=== PATIENT | male | born 1950 | race Caucasian/White ===

== ENCOUNTER 2019-02-19 12:48 | Outpatient (RCR) | payer MEDICARE ==
--- NOTE | 2019-02-05 13:46 | CARECAPL ---
Assessment Account #s: Initial Assessment General Diagnoses: CABG Date of event: Dec 19, 2018 Physician: Selvin Toussaint Allergies: Coded Allergies: MS - No Known Drug Allergy (Verified Allergy, Unknown, 07/23/12) Date Entered Program: Feb 05, 2019 Risk strat for cardiac event: High Exercise Assessment: Initial Assessment Stages of change: Pre-contemplation Exercise Prescription Plan educate on cardiovascular disease and increase endurance, strength and flexibility through monitored exercise program. Modalities initiated: Nustep (will add level 1 for 6 minutes), Arm Aerometer (will add resistance of 1 for 5 minutes), Dumbells (will add 1lb weights 1 set of 8 reps), Recumbent Bike (will add resistance of 1 for 5 minutes) Frequency: 2 Duration (Minutes) 30 - 60 minutes total exercise a day. 15 - 20 work intervals in minutes. PRN rest intervals in minutes. Functional Capacity Goal Sustained Metabolic Equivalent of a task (MET) goal of 2.5-3.5 for 15-20 minutes. Intensity: 3-Moderate Progression (METS) Increase by: 0.5 METS every: 3-5 sessions Angina with ex: No Target Heart Rate rest + 35-40 per beta fatou therapy. Weight (pounds): 1 Reps: 6-8 Medications Scheduled Amiloride HCl (Amiloride HCl), 5 MG PO DAILY, (Reported) Ascorbic Acid (Vitamin C), 500 MG PO DAILY, (Reported) Aspirin (Aspirin), 81 MG PO DAILY, (Reported) Atorvastatin Calcium (Atorvastatin Calcium), 80 MG PO QHS, (Reported) Bumetanide (Bumetanide), 1 MG PO BID, (Reported) Carvedilol (Carvedilol), 25 MG PO BID, (Reported) Losartan Potassium (Losartan Potassium), 50 MG PO DAILY, (Reported) Metformin HCl (Metformin HCl), 1,000 MG PO BID, (Reported) Scheduled PRN Albuterol Sulfate (Ventolin Hfa), 2 PUFF INH Q4-6HP PRN for wheezing, (Reported) Discontinued Medications Docusate Sodium (Colace), 100 MG PO BID, (Reported) Discontinued Reason: Pt states not taking Ferrous Sulfate (Ferrous Sulfate), 325 MG PO BID, (Reported) Discontinued Reason: Pt states not taking Target Goals Individual exercise Rx (1) BP 140/90 or 130/80 if DM or CKD (1) Aerobic active 30+min 5 days per week (1) Nutrition Date: Feb 05, 2019 Assessment: Initial Assessment Stages of change: Pre-contemplation Lipid- med/supplement atorvastatin Diabetes Diabetes: Yes HbA1c (%): 6.6 Diabetes medication metformin Monitor Blood Sugar at home: Yes (only as needed Dr. Martin checks his A1c every 3 months) Frequency as needed Weight Management Weight (lbs): 283.4 Height (inches): 64 Waist Circumference (Inches): 48 BMI: 48.57 Weight goal: 240 Special Diet: low salt Vitamin/Supplements: Multivitamin Alcohol: special Alcohol Type: beer, wine Alcohol Amount: 2 Diet Access Tool: Rate your plate Score: 58 Intervention Rn Chronic Consult: No Nurse/patient discussion: No Dietary Goals working on eating smaller portions so he can lose weight. Diet Class: No Referral to Diabetes education: No Referral to lipid clinic: No Referral to weight mangement p: No Education Goals Met: No Target goal LDL-C<100 if triglycerides are >200 Non-HDL-C should be <130 (1) LDL-C<70 for high risk patients (4) HbA1c<7% (1) BMI<25 Waist cir<40in M/<35in F (1) Education Date: Feb 05, 2019 Assessment: Initial Assessment Knowledge Test Score: 10 Stages of change: Pre-contemplation Family Support: Yes Tobacco use: No Quit: never smoked Target Goals Complete cessation of tobacco use (1). Psychosocial Date: Feb 05, 2019 Psych Test (Initial/Discharge) Tool Used: CESD Score: 1 Stages of change: Pre-contemplation Intervention Physician Consult: No Physician Referral: No Psychotropic medication none Education Goals Met: No Target Goal Assess presence or absence of depression using a valid screening tool (1). Maximize coping skills (2). Positive support system (2). Patient/Program Goal Preventative Medication: Yes Aspirin, Yes Clopidogrel, Yes Beta blockade, Yes Statin/OTR lipid Lowering Fall Risk Assess: Yes (postive for fall risk) Assisstive Device: cane Provider Assessment Provider Assessment: Proceed with rehab Mounika Nieves RN Feb 05, 2019 13:46
[~2019-02-19 12:48] MED LIST: AMIL5TAB4 PO; ASPI81CH33 PO; ATOR80TA59 PO; BUME1TAB3 PO; CARV25TA PO; COLA100C5 PO; FERR325T3 PO; LOSA50TA88 PO; METF10004 PO; VENTAER INH; VITA500C24 PO
== END 2019-02-20 ==
LOC: M CR 12:48
PROVIDERS: ATTEND Internal Medicine Cardiovascular Disease
DX: Z95.1 Presence of aortocoronary bypass graft (principal)

== ENCOUNTER 2019-03-14 10:44 | Outpatient (RCR) | payer MEDICARE ==
--- NOTE | 2019-02-27 08:47 | CARECAPL ---
Assessment Account #s: Re-Assessment I General Diagnoses: CABG Date of event: Dec 19, 2018 Physician: Selvin Toussaint Allergies: Coded Allergies: MS - No Known Drug Allergy (Verified Allergy, Unknown, 07/23/12) Date Entered Program: Feb 05, 2019 Risk strat for cardiac event: High Exercise Date: Feb 27, 2019 Assessment: Re-Assessment I Stages of change: Preperation Exercise Prescription Modalities initiated: Nustep (L2 12 minutes mts 3.8 rpe 2), Arm Aerometer (2.5 10 minutes mts 2.7 rpe 2.5), Dumbells, Recumbent Bike (R3 10 minutes mts 3.7 rpe 3) Frequency: 2-3 Duration (Minutes) 30 - 60 minutes total exercise a day. 15 - 20 work intervals in minutes. PRN rest intervals in minutes. Functional Capacity Goal Sustained Metabolic Equivalent of a task (MET) goal of 3.5-4.5 for 15-20 minutes. Intensity: 2-Slight Progression (METS) Increase by: .5 METS every: 2-3 sessions Resistance Training: Yes Weight (pounds): 2 Reps: 6-8 Hypertension: Yes Hypertension controlled with: Medication Resting 102/66 Peak Exercise BP 140/84 Meds see below Medications Scheduled Amiloride HCl (Amiloride HCl), 5 MG PO DAILY, (Reported) Ascorbic Acid (Vitamin C), 500 MG PO DAILY, (Reported) Aspirin (Aspirin), 81 MG PO DAILY, (Reported) Atorvastatin Calcium (Atorvastatin Calcium), 80 MG PO QHS, (Reported) Bumetanide (Bumetanide), 1 MG PO BID, (Reported) Carvedilol (Carvedilol), 25 MG PO BID, (Reported) Losartan Potassium (Losartan Potassium), 50 MG PO DAILY, (Reported) Metformin HCl (Metformin HCl), 1,000 MG PO BID, (Reported) Scheduled PRN Albuterol Sulfate (Ventolin Hfa), 2 PUFF INH Q4-6HP PRN for wheezing, (Reported) Current BP 104/70 after exercise Med Change: No Intervention Home exercise: Type (walking, recumbant bike, silver sneakers (progam at [facility])), Frequency Resistance Training: Yes Education: Self pulse (pt demonstrates taking self pulse), Ex safety (pt states understanding of safe exercise, reporting chest pain, warm and cool down, s/s to report to nurses and dr if not here.), S/S to report (clear understanding of s/s to report ), RPE Scale (demonstrates effort scale indepently), Equipment orientation (pt uses exercise equipment with minimal assistance), warm up/cool down (demonstrates independently warmup and cool down), Physical Active (pt verbalizes knowledge of importance of continued exercise following cardiac rehab program) Education Goals Met: No (progressing toward goals. good attitude toward exercise) Target Goals Individual exercise Rx (1) BP 140/90 or 130/80 if DM or CKD (1) Aerobic active 30+min 5 days per week (1) Nutrition Date: Feb 27, 2019 Assessment: Re-Assessment I Stages of change: Pre-contemplation (not activing talking about weight problem or about engaging in reducing ) Diabetes Diabetes: Yes Fasting Blood Sugar: 111 Monitor Blood Sugar at home: No (Accounting Teacher monitor [id number] with Hgb A1C) Medication Change: No Random Blood Sugar: 111 Current Weight (pounds): 287.4 Weight Goal 220 Intervention Commutator Repairer Consult: Yes Nurse/patient discussion: No (will discuss in education session with umbrella tipper and with nurse/pt 1 on 1.) Dietary Goals smaller portions and better choices Diet Class: No (will see this program) Education S&S hypo/hyper glycemia (acknowledges s/s of low and high blood sugar+), Relate Diabetes in CAD (will education about the increase risk of high glucose in relationship to cardiac disease during this program), Eating Healthy (will cover with umbrella tipper and with nurse 1 on 1) Education Goals Met: No (progressing toward goals. Will spend much time on self management of diet modification) Target goal LDL-C<100 if triglycerides are >200 Non-HDL-C should be <130 (1) LDL-C<70 for high risk patients (4) HbA1c<7% (1) BMI<25 Waist cir<40in M/<35in F (1) Education Date: Feb 27, 2019 Assessment: Re-Assessment I Quit: never smoked Intervention Attended education classes: Yes Education: Risk factors (Risk factors of poor diet, obesity, abnormal lipid panel, diabetes and lack of exercise reviewed with pt) Education Goals Met: No (education will continue throughout program) Target Goals Complete cessation of tobacco use (1). Psychosocial Date: Feb 27, 2019 Assessment: Re-Assessment I Stages of change: Preperation Intervention Physician Consult: No Physician Referral: No Stress Management Class: No Uses Stress Management Skills: No (will be proviewed in program) Education Goals Met: No (will be provided during this program. Have a good sense of humor and good attitude toward program) Target Goal Assess presence or absence of depression using a valid screening tool (1). Maximize coping skills (2). Positive support system (2). Provider Assessment Session Number: 5 Provider Assessment: No changes (has had good attendance thus far, receptive to education when provided.) Jo-Ann Winters RN Feb 27, 2019 08:47
--- NOTE | 2019-03-17 17:58 | CARECAPL ---
Assessment Account #s: Re-Assessment II General Diagnoses: CABG Date of event: Dec 19, 2018 Physician: Selvin Toussaint Allergies: Coded Allergies: MS - No Known Drug Allergy (Verified Allergy, Unknown, 07/23/12) Date Entered Program: Feb 05, 2019 Risk strat for cardiac event: High Exercise Date: Mar 17, 2019 Assessment: Re-Assessment II Stages of change: Contemplate Exercise Prescription Plan TO EDUCATE AND BUILD ENDURANCE THROUGH MONITORED EXERCISE Modalities initiated: Nustep (METS=3.80/RPE=2), Arm Aerometer (METS=3.20/RPE=3), Dumbells (6#/RPE=2), Recumbent Bike (METS=4.7/RPE=3) Frequency: 3 Duration (Minutes) 30 - 60 minutes total exercise a day. 15 - 20 work intervals in minutes. PRN rest intervals in minutes. Functional Capacity Goal Sustained Metabolic Equivalent of a task (MET) goal of 3.5-4.5 for 15-20 minutes. Intensity: 3-Moderate Progression (METS) Increase by: 0.5 METS every: 5 sessions TOLERATED Angina with ex: No Target Heart Rate REST +35-40 Resistance Training: Yes Weight (pounds): 6 Reps: 12-15 Hypertension: Yes Hypertension controlled with: Medication (CARVEDILOL,AMILORIDE,LOSARTIN) Resting 106/60 Peak Exercise BP 162/90 Medications Scheduled Amiloride HCl (Amiloride HCl), 5 MG PO DAILY, (Reported) Ascorbic Acid (Vitamin C), 500 MG PO DAILY, (Reported) Aspirin (Aspirin), 81 MG PO DAILY, (Reported) Atorvastatin Calcium (Atorvastatin Calcium), 80 MG PO QHS, (Reported) Bumetanide (Bumetanide), 1 MG PO BID, (Reported) Carvedilol (Carvedilol), 25 MG PO BID, (Reported) Losartan Potassium (Losartan Potassium), 50 MG PO DAILY, (Reported) Metformin HCl (Metformin HCl), 1,000 MG PO BID, (Reported) Scheduled PRN Albuterol Sulfate (Ventolin Hfa), 2 PUFF INH Q4-6HP PRN for wheezing, (Reported) Current BP 104/70 Med Change: No Intervention Home exercise: Type (WALKING, JOIN LOCAL GYM, HAND WEIGHTS), Frequency (3-5 DAYS PER WEEK), Duration (30-60 MIN) Resistance Training: Yes Education: Self pulse (SEE EDUCATION ON PRIOR ITP, CONTINUE TO REINFORCE WHILE IN PROGRAM) Education Goals Met: Yes (PROGRESSING TOWARD GOALS) Target Goals Individual exercise Rx (1) BP 140/90 or 130/80 if DM or CKD (1) Aerobic active 30+min 5 days per week (1) Nutrition Date: Mar 17, 2019 Assessment: Re-Assessment II Stages of change: Contemplate (DISCUSSING NEED TO LOSE WEIGHT, DOESN'T SEEM VERY MOTIVATED AT THIS TIME) Lipid- med/supplement ATORVASTATIN Med Change: No Diabetes Diabetes: Yes Fasting Blood Sugar: 109 Diabetes medication METFORMIN, LOG CHAIN FEEDER FOLLOWS HGBA1C Q 3 MONTHS Monitor Blood Sugar at home: Yes Medication Change: No Weight Management Weight (lbs): 285 Special Diet: low salt, low-fat Current Weight (pounds): 285 Intervention Utility Porter Consult: No Nurse/patient discussion: Yes Diet Class: Yes (MET WITH EDITOR SOUND 02/27/2019) Referral to Diabetes education: No Referral to lipid clinic: No Referral to weight mangement p: No Education Eating Healthy (ENCOURAGE LOW SALT, LOW FAT HEART HEALTHY DIET, ENCOURAGE SMALLER PORTIONS) Education Goals Met: Yes (PROGRESSING TOWARD GOALS) Target goal LDL-C<100 if triglycerides are >200 Non-HDL-C should be <130 (1) LDL-C<70 for high risk patients (4) HbA1c<7% (1) BMI<25 Waist cir<40in M/<35in F (1) Education Date: Mar 17, 2019 Assessment: Re-Assessment II Learning Barriers: ready Stages of change: Contemplate Family Support: Yes Tobacco use: No Intervention Referral to smoking cessation: No Individual education and couns: No Tobacco Adjunct: No Education class schedule given: No Attended education classes: No Education: med compliance (DISCUSSED IMPORTANCE OF MEDICATION COMPLIANCE, PATIENT VERBALIZES UNDERSTANDING) Education Goals Met: Yes (PROGRESSING TOWARD GOALS) Target Goals Complete cessation of tobacco use (1). Psychosocial Date: Mar 17, 2019 Assessment: Re-Assessment II Stages of change: Contemplate Intervention Physician Consult: No Physician Referral: No Med Change: No Stress Management Class: No Uses Stress Management Skills: Yes Education Education: Coping Techniques (DISCUSSED COPING MEASURES SUCH TAKING TIME FOR SELF, EXERCISE, TALKING WITH FRIENDS AND FAMILY), S/S depression (REVIEWED S/S OF DEPRESSION SUCH WITHDRAWAL, LACK OF INTEREST,LACK OF APPETITE,SECLUSION), Relaxation Techniques (DISCUSSED WAYS TO RELAX SUCH READING, MUSIC, EXERCISE) Target Goal Assess presence or absence of depression using a valid screening tool (1). Maximize coping skills (2). Positive support system (2). Fall Risk Assess: Yes (NOT A FALL RISK) Provider Assessment Session Number: 10 Provider Assessment: Proceed with rehab (GOOD ATTENDENCE/RECEPTIVE TO EDUCATION) Rusty Orozco RN Mar 17, 2019 17:57
== END 2019-03-22 ==
LOC: M CR 10:44
PROVIDERS: ATTEND Internal Medicine Cardiovascular Disease
DX: Z51.89 Encounter for other specified aftercare (principal); Z95.1 Presence of aortocoronary bypass graft

== ENCOUNTER 2019-04-07 15:59 | Outpatient (RCR) | payer MEDICARE ==
--- NOTE | 2019-04-07 15:38 | CARECAPL ---
Assessment Account #s: Discharge General Diagnoses: CABG Date of event: Dec 19, 2018 Physician: Selvin Toussaint Allergies: Coded Allergies: MS - No Known Drug Allergy (Verified Allergy, Unknown, 07/23/12) Date Entered Program: Feb 05, 2019 Risk strat for cardiac event: High Exercise Date: Apr 07, 2019 Assessment: Followup/Discharge Stages of change: Preperation Exercise Prescription Modalities initiated: Treadmill, Nustep (L7 MTS 3.1 RPE 2.5), Arm Aerometer (6.0 MTS 3.2 RPE 3), Dumbells, Recumbent Bike (R5 MTS 4.9 3 RPE 10 MINUTES) Frequency: 2 Duration (Minutes) 30 - 60 minutes total exercise a day. 15 - 20 work intervals in minutes. PRN rest intervals in minutes. Functional Capacity Goal Sustained Metabolic Equivalent of a task (MET) goal of 3.5-4.5 for 15-20 minutes. Intensity: 3-Moderate Progression (METS) Increase by: METS every: sessions Angina with ex: No Resistance Training: Yes Weight (pounds): 8 Reps: 8-12 Hypertension: Yes Hypertension controlled with: Medication Resting 130/76 Peak Exercise BP 158/76 Meds SEE BELOW Medications Scheduled Amiloride HCl (Amiloride HCl), 5 MG PO DAILY, (Reported) Ascorbic Acid (Vitamin C), 500 MG PO DAILY, (Reported) Aspirin (Aspirin), 81 MG PO DAILY, (Reported) Atorvastatin Calcium (Atorvastatin Calcium), 80 MG PO QHS, (Reported) Bumetanide (Bumetanide), 1 MG PO BID, (Reported) Carvedilol (Carvedilol), 25 MG PO BID, (Reported) Losartan Potassium (Losartan Potassium), 50 MG PO DAILY, (Reported) Metformin HCl (Metformin HCl), 1,000 MG PO BID, (Reported) Scheduled PRN Albuterol Sulfate (Ventolin Hfa), 2 PUFF INH Q4-6HP PRN for wheezing, (Reported) Education Goals Met: Yes Target Goals Individual exercise Rx (1) BP 140/90 or 130/80 if DM or CKD (1) Aerobic active 30+min 5 days per week (1) Nutrition Date: Apr 07, 2019 Assessment: Followup/Discharge Stages of change: Preperation Med Change: No Diabetes Diabetes: No Medication Change: No Weight Management Weight (lbs): 286 Height (inches): 64 Waist Circumference (Inches): 53 BMI: 49.1 Diet Access Tool: Rate your plate Score: 58 Intervention Diet Class: Yes (11.7.19) Education Goals Met: Yes Target goal LDL-C<100 if triglycerides are >200 Non-HDL-C should be <130 (1) LDL-C<70 for high risk patients (4) HbA1c<7% (1) BMI<25 Waist cir<40in M/<35in F (1) Education Date: Apr 07, 2019 Assessment: Followup/Discharge Knowledge Test Score: 9 Stages of change: Preperation Family Support: Yes Education Goals Met: No (EDUCATION DONE BUT MUCH REINFORCEMENT NEEDED) Target Goals Complete cessation of tobacco use (1). Psychosocial Date: Apr 07, 2019 Assessment: Followup/Discharge Psych Test (Initial/Discharge) Tool Used: Other (PHQ-9) Score: 3 Stages of change: Contemplate Target Goal Assess presence or absence of depression using a valid screening tool (1). Maximize coping skills (2). Positive support system (2). Fall Risk Assess: No Provider Assessment Session Number: 14 Provider Assessment: No changes (FAIR ATTENDANCE. ) Jo-Ann Winters RN Apr 07, 2019 15:38
== END 2019-04-22 ==
LOC: M CR 15:59
PROVIDERS: ATTEND Internal Medicine Cardiovascular Disease
DX: Z51.89 Encounter for other specified aftercare (principal); Z95.1 Presence of aortocoronary bypass graft

== ENCOUNTER → 2024-12-05 | Outpatient (CLI) | payer MEDICARE ==
[~2024-12-05] MED LIST changes: +LOSA50TA28 PO; -LOSA50TA88 PO
== END ==
LOC: M CARPUL 13:28
PROVIDERS: ATTEND Physician Assistant
DX: I77.810 Thoracic aortic ectasia (principal); I08.3 Combined rheumatic disorders of mitral, aortic and tricuspid valves